=== PATIENT | female | born 1970 | race Hispanic/Latino ===

== ENCOUNTER 2020-05-06 11:39 | Emergency (ER) | payer BC ==
[~2020-05-06] VITALS: Ht 160 cm; Wt 83.0 kg
[~2020-05-06 11:39] MED LIST: LEVAQUIN500 MG PO; METOPROLOL TART50 MG PO; METRONIDAZOLE500 MG PO; MULTI-DAY VITA1 EACH; PROTONIX20 MG PO; SINGULAIR10 MG PO; TOPAMAX25 MG PO; WELLBUTRIN100 MG PO; ZYRTEC10 MG PO
[2020-05-06] MEDS ORDERED: TETANUS/DIPHTHERIA TOX ADULT 0.5 ML SYR IM ONE (12:15)
[2020-05-06] MEDS ORDERED: LIDOCAINE HCL 1% LOCAL INJ 20 ML VIAL INJ ONE (13:00)
[2020-05-06] MEDS ORDERED: HYDROCODONE/APAP 7.5MG-325MG 1 EA TAB PO ONE (13:00)
[2020-05-06] MEDS ORDERED: AUGMENTIN 875-1 EACH PO (14:39)
[2020-05-06] MEDS ORDERED: MUPIROCIN22 GM TOP (14:39)
== END 2020-05-06 15:03 | disposition home or self-care (01) ==
LOC: ER 12:12
DX: S51.852A Open bite of left forearm, initial encounter (principal); W54.0XXA Bitten by dog, initial encounter; Y92.008 Other place in unspecified non-institutional (private) residence as the place of occurrence of the external cause; I10 Essential (primary) hypertension; E11.9 Type 2 diabetes mellitus without complications; K21.9 Gastro-esophageal reflux disease without esophagitis; F32.9 Major depressive disorder, single episode, unspecified
CPT/HCPCS: 12002; 73090; 90471; 90714; 99284; J2001

== ENCOUNTER 2020-06-08 09:11 | Inpatient (IN) | payer BC ==
[~2020-06-08] VITALS: Ht 160 cm; Wt 83.0 kg
[~2020-06-08 09:11] MED LIST changes: +AUGMENTIN 875-1 EACH PO; +MUPIROCIN22 GM TOP
[2020-06-08] MEDS ORDERED: ASPIRIN 81 MG CHEW TAB PO ONE (09:45)
[2020-06-08 09:49] LABS: BASOPHILS % 0.3 % (0.0-1.0); HEMATOCRIT 39.6 % (34.2-44.1); HEMOGLOBIN 13.1 g/dL (12.0-16.0); LYMPHOCYTES # (AUTO) 1.1 (1.0-3.2); LYMPHOCYTES % 16.8 % (18.0-39.1); MEAN CORPUSCULAR HEMOGLOBIN 32.2 pg (28-32); MEAN CORPUSCULAR HGB CONC 33.1 g/dL (31-35); MEAN CORPUSCULAR VOLUME 97.3 fL (81-99); MONOCYTES # (AUTO) 0.6 (0.2-0.8); MONOCYTES % 8.7 % (4.4-11.3); NEUTROPHILS # (AUTO) 4.9 (2.1-6.9); NEUTROPHILS % 73.6 % (38.7-80.0); PLATELET COUNT 306 x10e3/uL (140-360); RED BLOOD COUNT 4.07 x10e6/uL (3.6-5.1); RED CELL DISTRIBUTION WIDTH 12.6 % (11.7-14.4)
[2020-06-08] MEDS ORDERED: DIATRIZOATE MEGL/DIATRIZOA SOD 30 ML BTL PO ONE (09:54)
[2020-06-08 10:01] LABS: ALANINE AMINOTRANSFERASE 71 IU/L (0-55); ALBUMIN 3.4 g/dL (3.5-5.0); ALBUMIN/GLOBULIN RATIO 0.8 (0.8-2.0); ALKALINE PHOSPHATASE 102 IU/L (40-150); ANION GAP 17.6 mmol/L (8-16); BLOOD UREA NITROGEN 7 mg/dL (7-26); BUN/CREATININE RATIO 9 (6-25); CALCIUM 8.8 mg/dL (8.4-10.2); CARBON DIOXIDE 23 mmol/L (22-29); CHLORIDE 98 mmol/L (98-107); CREATINE KINASE 43 IU/L (29-168); CREATININE, SERUM 0.74 mg/dL (0.57-1.11); EST GLOMERULAR FILTRATION RATE > 60 ML/MIN (60-); GLUCOSE 206 mg/dL (74-118); POTASSIUM 3.6 mmol/L (3.5-5.1); SODIUM 135 mmol/L (136-145)
[2020-06-08] MEDS ORDERED: SODIUM CHLORIDE 0.9% 50ML 50 ML ONE (10:50)
[2020-06-08] MEDS ORDERED: IOPAMIDOL 370 MG/ML 200 ML INFUS..BTL INJ ONE (10:50)
[2020-06-08] MEDS ORDERED: METRONIDAZOLE 500MG/NS 100ML 100 ML IV STA (12:05)
[2020-06-08] MEDS ORDERED: PIPERACILLIN/TAZOBAC 3.375 GM in SODIUM CHLORIDE 0.9% 50ML 50 ML IV ONE (12:30)
[2020-06-08] MEDS ORDERED: HYDROCODONE/APAP 5MG-325MG TAB PO PRN (12:45)
[2020-06-08] MEDS ORDERED: SIMETHICONE 80 MG CHEW PO PRN (12:45)
[2020-06-08] MEDS ORDERED: DIPHENHYDRAMINE HCL 25 MG CAP PO PRN (12:45)
[2020-06-08] MEDS ORDERED: HYDRALAZINE HCL 20 MG/ML VIAL IV PRN (12:45)
[2020-06-08] MEDS ORDERED: LIDOCAINE 4% PATCH TP PRN (12:45)
[2020-06-08] MEDS ORDERED: MORPHINE SULFATE INJ 2 MG/ML SYR IV PRN (12:45)
[2020-06-08] MEDS ORDERED: ONDANSETRON HCL INJ 2MG/ML 2ML 2 MG/ML VIAL IV PRN (12:45)
[2020-06-08] MEDS ORDERED: ACETAMINOPHEN 325 MG TAB PO PRN (12:45)
[2020-06-08] MEDS ORDERED: DOCUSATE SODIUM 100 MG CAP PO PRN (12:45)
[2020-06-08] MEDS ORDERED: DEXTROSE 50% SYRINGE 50 ML IV PRN ×2 (12:45→13:00)
[2020-06-08] MEDS ORDERED: METFORMIN HCL1000 MG PO (12:48)
[2020-06-08] MEDS ORDERED: ESCITALOPRAM OX10 MG PO (12:48)
[2020-06-08] MEDS ORDERED: LOSARTAN POTASS25 MG PO (12:48)
[2020-06-08 15:51] LABS: CLARITY,URINE CLEAR (CLEAR); COLOR,URINE YELLOW (YELLOW)
[2020-06-08 15:52] LABS: KETONES,URINE 2+ (NEGATIVE); LEUKOCYTE ESTERASE ,URINE NEGATIVE (NEGATIVE); NITRITE,URINE NEGATIVE (NEGATIVE); PROTEIN,URINE DIPSTICK NEGATIVE (NEGATIVE); URINE UROBILINOGEN 0.2 mg/dL (0.2 - 1)
[2020-06-08 16:05] LABS: BACTERIA,URINE RARE /HPF; EPITHELIAL CELLS,URINE FEW /LPF
[2020-06-08] MEDS: BUPROPION HCL 100 MG TAB PO SCH (17:00)
[2020-06-08] MEDS ORDERED: ENOXAPARIN SOD INJ 40 MG/0.4 ML SYR SC SCH (17:00)
[2020-06-08] MEDS: SODIUM CHLORIDE 0.9% 1000ML 1,000 ML IV SCH ×2 (17:25→21:19)
[2020-06-08] MEDS ORDERED: REMDESIVIR 200MG/NS 100ML 200 MG IV ONE (18:00)
[2020-06-08] MEDS: DEXAMETHASONE SOD PHOS 10 MG/1 ML VIAL IV SCH (18:29)
[2020-06-08] MEDS: ENOXAPARIN 30 MG/0.3 ML SYR SC SCH (18:29)
[2020-06-08 20:00] VITALS: BP 133/84
[2020-06-08] MEDS ORDERED: PIPERACILLIN/TAZOBAC 3.375 GM VIAL ONE (20:36)
[2020-06-08] MEDS ORDERED: SODIUM CHLORIDE 0.9% 100 ML ONE (20:39)
[2020-06-08] MEDS: MELATONIN 5 MG TABLET PO PRN (20:54)
[2020-06-08] MEDS: GUAIFENESIN/CODEINE 10 ML CUP PO PRN (20:54)
[2020-06-08] MEDS: PIPERACILLIN/TAZOBAC 3.375 GM in SODIUM CHLORIDE 0.9% 50ML 50 ML IV SCH (20:55)
[2020-06-09] VITALS (8 sets, daily range): BP systolic 113–135; BP diastolic 69–90
[2020-06-09] MEDS: PIPERACILLIN/TAZOBAC 3.375 GM in SODIUM CHLORIDE 0.9% 50ML 50 ML IV SCH ×3 (04:00→20:00)
[2020-06-09] MEDS ORDERED: PIPERACILLIN/TAZOBAC 3.375 GM VIAL ONE ×3 (04:54→21:43)
[2020-06-09] MEDS ORDERED: SODIUM CHLORIDE 0.9% 50ML 50 ML ONE ×3 (04:56→21:42)
[2020-06-09 05:25] LABS: BASOPHILS % 0.3 % (0.0-1.0); HEMATOCRIT 41.8 % (34.2-44.1); HEMOGLOBIN 13.6 g/dL (12.0-16.0); LYMPHOCYTES # (AUTO) 2.2 (1.0-3.2); LYMPHOCYTES % 30.9 % (18.0-39.1); MEAN CORPUSCULAR HEMOGLOBIN 32.2 pg (28-32); MEAN CORPUSCULAR HGB CONC 32.5 g/dL (31-35); MEAN CORPUSCULAR VOLUME 98.8 fL (81-99); MONOCYTES # (AUTO) 0.7 (0.2-0.8); MONOCYTES % 9.3 % (4.4-11.3); NEUTROPHILS # (AUTO) 4.1 (2.1-6.9); NEUTROPHILS % 59.1 % (38.7-80.0); PLATELET COUNT 333 x10e3/uL (140-360); RED BLOOD COUNT 4.23 x10e6/uL (3.6-5.1); RED CELL DISTRIBUTION WIDTH 12.4 % (11.7-14.4)
[2020-06-09 05:53] LABS: ANION GAP 20.4 mmol/L (8-16); BLOOD UREA NITROGEN 10 mg/dL (7-26); BUN/CREATININE RATIO 12 (6-25); CALCIUM 8.7 mg/dL (8.4-10.2); CARBON DIOXIDE 20 mmol/L (22-29); CHLORIDE 100 mmol/L (98-107); CREATININE, SERUM 0.81 mg/dL (0.57-1.11); EST GLOMERULAR FILTRATION RATE > 60 ML/MIN (60-); GLUCOSE 254 mg/dL (74-118); MAGNESIUM 1.8 MG/DL (1.3-2.1); PHOSPHORUS 3.8 MG/DL (2.3-4.7); POTASSIUM 3.4 mmol/L (3.5-5.1); SODIUM 137 mmol/L (136-145)
[2020-06-09] MEDS ORDERED: FUROSEMIDE INJ 10 MG/ML 4 ML VIAL ONE (07:44)
[2020-06-09] MEDS: GUAIFENESIN/CODEINE 10 ML CUP PO PRN ×3 (08:32→21:30)
[2020-06-09] MEDS: PANTOPRAZOLE SOD 40 MG TABEC PO SCH (08:53)
[2020-06-09] MEDS: DEXAMETHASONE SOD PHOS 10 MG/1 ML VIAL IV SCH (08:53)
[2020-06-09] MEDS: SODIUM CHLORIDE 0.9% 1000ML 1,000 ML IV SCH ×2 (08:53→18:03)
[2020-06-09] MEDS: ZINC SULFATE 220 MG CAP PO SCH (08:54)
[2020-06-09] MEDS: LOSARTAN POTASSIUM 25 MG TAB PO SCH (08:54)
[2020-06-09] MEDS: ASCORBIC ACID 500 MG TAB PO SCH ×2 (08:54→17:06)
[2020-06-09] MEDS: METOPROLOL TARTRATE 50 MG TAB PO SCH (08:54)
[2020-06-09] MEDS: ESCITALOPRAM OXALATE 10 MG TAB PO SCH (08:54)
[2020-06-09] MEDS: BUPROPION HCL 100 MG TAB PO SCH ×2 (08:54→17:06)
[2020-06-09] MEDS: ENOXAPARIN 30 MG/0.3 ML SYR SC SCH ×2 (08:55→17:06)
[2020-06-09] MEDS ORDERED: ENOXAPARIN INJ 80 MG/0.8 ML SYR SC SCH (09:00)
[2020-06-09] MEDS ORDERED: PANTOPRAZOLE SOD 40 MG TABEC PO SCH (09:00)
[2020-06-09] MEDS: REMDESIVIR 100MG/NS 100ML 100 MG IV SCH (14:07)
[2020-06-09] MEDS: MELATONIN 5 MG TABLET PO PRN (21:30)
[2020-06-10] VITALS: BP 115/76
[2020-06-10] MEDS ORDERED: PIPERACILLIN/TAZOBAC 3.375 GM VIAL ONE ×3 (01:52→21:02)
[2020-06-10] MEDS ORDERED: SODIUM CHLORIDE 0.9% 50ML 50 ML ONE ×3 (01:52→21:02)
[2020-06-10] MEDS: GUAIFENESIN/CODEINE 10 ML CUP PO PRN ×4 (02:33→18:59)
[2020-06-10 04:00] VITALS: BP 133/54
[2020-06-10] MEDS: PIPERACILLIN/TAZOBAC 3.375 GM in SODIUM CHLORIDE 0.9% 50ML 50 ML IV SCH ×3 (04:00→21:16)
[2020-06-10] MEDS: SODIUM CHLORIDE 0.9% 1000ML 1,000 ML IV SCH (04:27)
[2020-06-10 07:28] LABS: BASOPHILS % 0.1 % (0.0-1.0); HEMATOCRIT 34.5 % (34.2-44.1); HEMOGLOBIN 11.2 g/dL (12.0-16.0); LYMPHOCYTES # (AUTO) 1.5 (1.0-3.2); LYMPHOCYTES % 19.3 % (18.0-39.1); MEAN CORPUSCULAR HEMOGLOBIN 31.7 pg (28-32); MEAN CORPUSCULAR HGB CONC 32.5 g/dL (31-35); MEAN CORPUSCULAR VOLUME 97.7 fL (81-99); MONOCYTES # (AUTO) 0.6 (0.2-0.8); MONOCYTES % 8.3 % (4.4-11.3); NEUTROPHILS # (AUTO) 5.4 (2.1-6.9); NEUTROPHILS % 71.9 % (38.7-80.0); PLATELET COUNT 290 x10e3/uL (140-360); RED BLOOD COUNT 3.53 x10e6/uL (3.6-5.1); RED CELL DISTRIBUTION WIDTH 12.5 % (11.7-14.4)
[2020-06-10 07:52] LABS: ALANINE AMINOTRANSFERASE 42 IU/L (0-55); ALBUMIN 2.6 g/dL (3.5-5.0); ALBUMIN/GLOBULIN RATIO 0.7 (0.8-2.0); ALKALINE PHOSPHATASE 79 IU/L (40-150); BLOOD UREA NITROGEN 6 mg/dL (7-26); BUN/CREATININE RATIO 10 (6-25); CALCIUM 7.7 mg/dL (8.4-10.2); CARBON DIOXIDE 22 mmol/L (22-29); CHLORIDE 102 mmol/L (98-107); CREATININE, SERUM 0.63 mg/dL (0.57-1.11); EST GLOMERULAR FILTRATION RATE > 60 ML/MIN (60-); GLUCOSE 190 mg/dL (74-118); SODIUM 134 mmol/L (136-145)
[2020-06-10] MEDS: PANTOPRAZOLE SOD 40 MG TABEC PO SCH (08:08)
[2020-06-10] MEDS: DEXAMETHASONE SOD PHOS 10 MG/1 ML VIAL IV SCH (09:22)
[2020-06-10] MEDS: ENOXAPARIN 30 MG/0.3 ML SYR SC SCH ×2 (09:22→18:11)
[2020-06-10] MEDS: ZINC SULFATE 220 MG CAP PO SCH (09:22)
[2020-06-10] MEDS: ESCITALOPRAM OXALATE 10 MG TAB PO SCH (09:22)
[2020-06-10] MEDS: ASCORBIC ACID 500 MG TAB PO SCH ×2 (09:22→18:11)
[2020-06-10] MEDS: BUPROPION HCL 100 MG TAB PO SCH ×2 (09:22→18:11)
[2020-06-10] MEDS: LOSARTAN POTASSIUM 25 MG TAB PO SCH (09:23)
[2020-06-10] MEDS: METOPROLOL TARTRATE 50 MG TAB PO SCH (09:23)
[2020-06-10 10:09] VITALS: BP 109/63
[2020-06-10 10:47] VITALS: BP 109/63
[2020-06-10] MEDS ORDERED: FUROSEMIDE INJ 10 MG/ML 4 ML VIAL IV ONE (13:20)
[2020-06-10] MEDS: REMDESIVIR 100MG/NS 100ML 100 MG IV SCH (13:27)
[2020-06-10 20:00] VITALS: BP 122/86
[2020-06-10 21:00] VITALS: BP 122/86
[2020-06-10] MEDS: MELATONIN 5 MG TABLET PO PRN (22:16)
[2020-06-11] VITALS (7 sets, daily range): BP systolic 101–141; BP diastolic 70–90
[2020-06-11] MEDS: GUAIFENESIN/CODEINE 10 ML CUP PO PRN ×2 (01:26→22:06)
[2020-06-11] MEDS: POTASSIUM CHLORIDE 20 MEQ TAB CR PO PRN ×2 (01:26→10:48)
[2020-06-11] MEDS ORDERED: ZOLPIDEM TARTRATE 5 MG TAB PO ONE (01:45)
[2020-06-11] MEDS ORDERED: PIPERACILLIN/TAZOBAC 3.375 GM VIAL ONE ×4 (04:38→22:35)
[2020-06-11] MEDS ORDERED: SODIUM CHLORIDE 0.9% 50ML 50 ML ONE ×3 (04:39→22:35)
[2020-06-11] MEDS: PIPERACILLIN/TAZOBAC 3.375 GM in SODIUM CHLORIDE 0.9% 50ML 50 ML IV SCH ×3 (04:45→20:00)
[2020-06-11 07:49] LABS: BASOPHILS % 0.3 % (0.0-1.0); EOSINOPHILS % 0.1 % (0.0-6.0); HEMATOCRIT 32.1 % (34.2-44.1); HEMOGLOBIN 10.7 g/dL (12.0-16.0); LYMPHOCYTES # (AUTO) 1.7 (1.0-3.2); LYMPHOCYTES % 22.7 % (18.0-39.1); MEAN CORPUSCULAR HEMOGLOBIN 31.8 pg (28-32); MEAN CORPUSCULAR HGB CONC 33.3 g/dL (31-35); MEAN CORPUSCULAR VOLUME 95.3 fL (81-99); MONOCYTES # (AUTO) 0.6 (0.2-0.8); NEUTROPHILS # (AUTO) 5.2 (2.1-6.9); NEUTROPHILS % 68.2 % (38.7-80.0); PLATELET COUNT 346 x10e3/uL (140-360); RED BLOOD COUNT 3.37 x10e6/uL (3.6-5.1); RED CELL DISTRIBUTION WIDTH 12.4 % (11.7-14.4)
[2020-06-11 08:15] LABS: ALANINE AMINOTRANSFERASE 37 IU/L (0-55); ALBUMIN 2.7 g/dL (3.5-5.0); ALBUMIN/GLOBULIN RATIO 0.7 (0.8-2.0); ALKALINE PHOSPHATASE 69 IU/L (40-150); ANION GAP 12.1 mmol/L (8-16); BLOOD UREA NITROGEN 6 mg/dL (7-26); BUN/CREATININE RATIO 10 (6-25); CALCIUM 7.9 mg/dL (8.4-10.2); CARBON DIOXIDE 27 mmol/L (22-29); CHLORIDE 102 mmol/L (98-107); CREATININE, SERUM 0.63 mg/dL (0.57-1.11); EST GLOMERULAR FILTRATION RATE > 60 ML/MIN (60-); GLUCOSE 129 mg/dL (74-118); POTASSIUM 3.1 mmol/L (3.5-5.1); SODIUM 138 mmol/L (136-145)
[2020-06-11] MEDS: PANTOPRAZOLE SOD 40 MG TABEC PO SCH (09:49)
[2020-06-11] MEDS: DEXAMETHASONE SOD PHOS 10 MG/1 ML VIAL IV SCH (09:49)
[2020-06-11] MEDS: METOPROLOL TARTRATE 50 MG TAB PO SCH (09:50)
[2020-06-11] MEDS: LOSARTAN POTASSIUM 25 MG TAB PO SCH (09:50)
[2020-06-11] MEDS: ESCITALOPRAM OXALATE 10 MG TAB PO SCH (09:50)
[2020-06-11] MEDS: ASCORBIC ACID 500 MG TAB PO SCH ×2 (09:50→16:40)
[2020-06-11] MEDS: ZINC SULFATE 220 MG CAP PO SCH (09:51)
[2020-06-11] MEDS: BUPROPION HCL 100 MG TAB PO SCH ×2 (09:51→16:40)
[2020-06-11] MEDS: ENOXAPARIN 30 MG/0.3 ML SYR SC SCH ×2 (09:51→16:40)
[2020-06-11] MEDS: REMDESIVIR 100MG/NS 100ML 100 MG IV SCH (14:00)
[2020-06-11] MEDS: INSULIN REGULAR, HUMAN 100 UNIT/1 ML 3ML VIAL SQ SCH ×2 (18:13→21:00)
[2020-06-11] MEDS ORDERED: DEXTROSE 50% SYRINGE 50 ML IV PRN (18:15)
[2020-06-11] MEDS ORDERED: INSULIN GLARGINE 100 UNITS/ML VIAL SQ SCH (21:00)
[2020-06-12] VITALS: BP 127/75
[2020-06-12 04:00] VITALS: BP 133/85
[2020-06-12] MEDS: PIPERACILLIN/TAZOBAC 3.375 GM in SODIUM CHLORIDE 0.9% 50ML 50 ML IV SCH ×2 (04:00→12:43)
[2020-06-12 06:21] LABS: % IRON SATURATION 13 % (15-50); ALANINE AMINOTRANSFERASE 33 IU/L (0-55); ALBUMIN 2.6 g/dL (3.5-5.0); ALBUMIN/GLOBULIN RATIO 0.7 (0.8-2.0); ALKALINE PHOSPHATASE 70 IU/L (40-150); ANION GAP 11.1 mmol/L (8-16); BLOOD UREA NITROGEN 6 mg/dL (7-26); BUN/CREATININE RATIO 11 (6-25); CALCIUM 8.4 mg/dL (8.4-10.2); CARBON DIOXIDE 28 mmol/L (22-29); CHLORIDE 102 mmol/L (98-107); CREATININE, SERUM 0.54 mg/dL (0.57-1.11); EST GLOMERULAR FILTRATION RATE > 60 ML/MIN (60-); GLUCOSE 80 mg/dL (74-118); IRON 30 ug/dL (50-170); POTASSIUM 3.1 mmol/L (3.5-5.1); SODIUM 138 mmol/L (136-145); TOTAL IRON BINDING CAPACITY 235 ug/dL (261-478); TRANSFERRIN 168 mg/dL (180-382)
[2020-06-12 06:39] LABS: BASOPHILS % 0.1 % (0.0-1.0); EOSINOPHILS % 0.3 % (0.0-6.0); HEMATOCRIT 31.8 % (34.2-44.1); HEMOGLOBIN 10.7 g/dL (12.0-16.0); LYMPHOCYTES # (AUTO) 1.7 (1.0-3.2); LYMPHOCYTES % 24.6 % (18.0-39.1); MEAN CORPUSCULAR HEMOGLOBIN 31.8 pg (28-32); MEAN CORPUSCULAR HGB CONC 33.6 g/dL (31-35); MEAN CORPUSCULAR VOLUME 94.4 fL (81-99); MONOCYTES # (AUTO) 0.5 (0.2-0.8); MONOCYTES % 7.8 % (4.4-11.3); NEUTROPHILS # (AUTO) 4.6 (2.1-6.9); NEUTROPHILS % 66.6 % (38.7-80.0); PLATELET COUNT 425 x10e3/uL (140-360); RED BLOOD COUNT 3.37 x10e6/uL (3.6-5.1); RED CELL DISTRIBUTION WIDTH 12.3 % (11.7-14.4)
[2020-06-12 06:41] LABS: FERRITIN 82.42 ng/mL (4.63-204.00)
[2020-06-12] MEDS: INSULIN REGULAR, HUMAN 100 UNIT/1 ML 3ML VIAL SQ SCH ×2 (07:30→12:45)
[2020-06-12] MEDS ORDERED: PIPERACILLIN/TAZOBAC 3.375 GM VIAL ONE (07:48)
[2020-06-12 08:28] VITALS: BP 126/76
[2020-06-12] MEDS: DEXAMETHASONE SOD PHOS 10 MG/1 ML VIAL IV SCH (09:29)
[2020-06-12] MEDS: PANTOPRAZOLE SOD 40 MG TABEC PO SCH (09:29)
[2020-06-12] MEDS: ESCITALOPRAM OXALATE 10 MG TAB PO SCH (09:30)
[2020-06-12] MEDS: ASCORBIC ACID 500 MG TAB PO SCH (09:30)
[2020-06-12] MEDS: ZINC SULFATE 220 MG CAP PO SCH (09:30)
[2020-06-12] MEDS: GUAIFENESIN/CODEINE 10 ML CUP PO PRN (09:30)
[2020-06-12] MEDS: BUPROPION HCL 100 MG TAB PO SCH (09:30)
[2020-06-12] MEDS: METOPROLOL TARTRATE 50 MG TAB PO SCH (09:30)
[2020-06-12] MEDS: ENOXAPARIN 30 MG/0.3 ML SYR SC SCH (09:30)
[2020-06-12] MEDS: LOSARTAN POTASSIUM 25 MG TAB PO SCH (09:30)
[2020-06-12 11:52] VITALS: BP 133/88
[2020-06-12] MEDS: POTASSIUM CHLORIDE 20 MEQ TAB CR PO PRN (12:54)
[2020-06-12] MEDS: REMDESIVIR 100MG/NS 100ML 100 MG IV SCH (13:30)
[2020-06-12 15:58] VITALS: BP 121/78
== END 2020-06-12 17:37 | disposition home or self-care (01) | DRG 177 ==
LOC: ER 09:12 → ERHOLD 12:09 → MED/SURG3 19:22
PROVIDERS: ADMIT Internal Medicine; ATTEND Internal Medicine
PROC: XW033E5 Introduction of Remdesivir Anti-infective into Peripheral Vein, Percutaneous Approach, New Technology Group 5 (ICD-10-PCS; principal; 2020-06-08)
PROC: 3E0333Z Introduction of Anti-inflammatory into Peripheral Vein, Percutaneous Approach (ICD-10-PCS; 2020-06-08)
DX: U07.1 COVID-19 (principal); J12.82 Pneumonia due to coronavirus disease 2019; K57.20 Diverticulitis of large intestine with perforation and abscess without bleeding; E66.01 Morbid (severe) obesity due to excess calories; E11.9 Type 2 diabetes mellitus without complications; Z83.3 Family history of diabetes mellitus; Z82.49 Family history of ischemic heart disease and other diseases of the circulatory system; I10 Essential (primary) hypertension; Z68.32 Body mass index [BMI] 32.0-32.9, adult; D18.09 Hemangioma of other sites
CPT/HCPCS: 36415; 71045; 74177; 80048; 80053; 81001; 82550; 82553; 82607; 82728; 82746; 82948; 83036; 83540; 83605; 83735; 84100; 84466; 84484; 85025; 85045; 87040; 99284; J1100; J1650; J1940; J2270; J2405; J2543; J7030; J7050; Q9967; U0002